=== PATIENT | male | born 1965 | race Caucasian/White ===

== ENCOUNTER → 2019-05-09 | Outpatient (CLI) | payer BC | END | disposition home or self-care (01) | LOC: US 15:59 | DX: R22.32 Localized swelling, mass and lump, left upper limb (principal) ==

== ENCOUNTER 2024-10-18 22:11 | Emergency (ER) | payer OTHER ==
[2024-10-19 01:43] LABS: BASO # 0.1 10*3/uL (0.0-0.1); EOS # 0.3 10*3/uL (0.0-0.4); HEMATOCRIT 40.5 % (42.0-52.0); MEAN CORPUSCULAR HGB 30.2 pg (27.0-31.0); MEAN CORPUSCULAR HGB CONC 32.8 g/dl (33.0-37.0); MEAN PLATELET VOLUME 8.8 fl (9.6-12.3); MONO # 0.9 10*3/uL (0.1-1.0); MONO % 10.6 % (3.0-9.0); NEUT # 4.6 10*3/uL (2.3-7.9); NEUT % 56.4 % (47.0-73.0); PLATELET COUNT AUTOMATED 206 10*3/uL (130-400); RED CELL DISTRI WIDTH 13.1 % (0-14.5); WHITE BLOOD COUNT 8.2 10*3/uL (4.8-10.8)
[2024-10-19 02:02] LABS: BUN 9 mg/dl (9-23); CHLORIDE 106 mmol/L (98-107); URIC ACID 7.9 mg/dL (3.7-9.2)
[2024-10-19] MEDS ORDERED: PREDNISONE20 M1 PO (03:18)
[2024-10-19] MEDS ORDERED: methylPREDNISolone sod succ 125 MG VIAL IM ONE (03:20)
== END 2024-10-19 03:36 | disposition home or self-care (01) ==
LOC: ED 22:11
PROVIDERS: Emergency Medicine
DX: M77.51 Other enthesopathy of right foot and ankle (principal)